=== PATIENT | male | born 1935 | race Caucasian/White ===

== ENCOUNTER 2017-07-26 05:55 | Inpatient (IN) ==
[2017-07-26 07:09] LABS: Apearance,Urine CLOUDY (Clear); Bilirubin,Urine Negative (Negative); Blood, Urine Large mg/dL (Negative); Glucose,Urine (UA) Negative (Negative); Ketones,Urine Negative (Negative); Nitrite,Urine Negative (Negative); Protein,Urine 100 MG/DL; RBC,Urine 2851 /HPF (0-4); Urine Color Red (Yellow); Urine Specific Gravity 1.005 (1.001-1.035); Urine Urobilinogen < 2.0 EU/DL (0.2-1.0)
[2017-07-26 08:07] LABS: Basophils # 0.1 10*3/uL (0.0-0.2); Basophils % 0.6 % (0.0-0.8); Eosinophils # 0.2 10*3/uL (0.0-0.87); Eosinophils % 1.7 % (0.00-10.9); Hematocrit 38.9 VOL% (42.0-52.0); Hemoglobin 13.2 GM/DL (14.0-18.0); Immature Granulocytes % 0.8 %; Immature Granulocytes Absolute 0.09 #; Lymphocytes # 1.9 10*3/uL (1.4-4.0); Lymphocytes % 16.4 % (21.2-54.2); Mean Corpuscular HGB Conc 33.9 GM/DL (32-36); Mean Corpuscular Hemoglobin 30 PG (27-34); Mean Corpuscular Volume 87.6 FL (87-102); Mean Platelet Volume 10.7 FL (9.6-12.0); Monocytes % 8.6 % (1.7-12.7); Neutrophils # 8.4 10*3/uL (1.4-7.4); Neutrophils % 71.9 % (38.7-73.9); Platelet Count 270 T/CUMM (130-400); Red Blood Count 4.44 MC/CUMM (3.8-5.5); Red Cell Distribution Width 13.2 % (9.3-17.3); White Blood Count 11.6 T/CUMM (4-12)
[2017-07-26 08:40] LABS: Calcium 9.1 MG/DL (8.5-10.1); Osmolality,Calculated 279.8 MOS/KG (273-304); Potassium 3.9 MMOL/L (3.5-5.1)
[2017-07-26] MEDS ORDERED: ONDANSETRON 4 MG/2 ML VIAL IV PRN (09:11)
[2017-07-26] MEDS ORDERED: ZALEPLON 5 MG CAPSULE PO PRN (09:11)
[2017-07-26] MEDS ORDERED: BISACODYL 5 MG TABLET PO PRN (09:11)
[2017-07-26] MEDS ORDERED: PROMETHAZINE 25 MG/1 ML VIAL IM PRN (09:11)
[2017-07-26] MEDS: SODIUM CHLORIDE 0.45% 1,000 ML IV SCH ×2 (10:43→21:56)
[2017-07-26] MEDS: POLYETHYLENE GLYCOL POWDER 17 GM PACK PO SCH (13:27)
[2017-07-26] MEDS: METOPROLOL SUCCINATE XL 50 MG TABLET PO SCH (21:57)
[2017-07-26] MEDS: metFORMIN 500 MG TABLET PO SCH (21:57)
[2017-07-27 07:03] LABS: Basophils # 0.1 10*3/uL (0.0-0.2); Basophils % 0.5 % (0.0-0.8); Eosinophils # 0.3 10*3/uL (0.0-0.87); Eosinophils % 2.5 % (0.00-10.9); Hematocrit 34.6 VOL% (42.0-52.0); Hemoglobin 11.7 GM/DL (14.0-18.0); Immature Granulocytes % 0.7 %; Lymphocytes # 2.2 10*3/uL (1.4-4.0); Lymphocytes % 15.8 % (21.2-54.2); Mean Corpuscular HGB Conc 33.8 GM/DL (32-36); Mean Corpuscular Hemoglobin 30 PG (27-34); Mean Corpuscular Volume 88.5 FL (87-102); Mean Platelet Volume 10.7 FL (9.6-12.0); Monocytes # 1.4 10*3/uL (0.11-0.8); Monocytes % 10.1 % (1.7-12.7); Neutrophils # 9.7 10*3/uL (1.4-7.4); Neutrophils % 70.4 % (38.7-73.9); Platelet Count 239 T/CUMM (130-400); Red Blood Count 3.91 MC/CUMM (3.8-5.5); Red Cell Distribution Width 13.2 % (9.3-17.3); White Blood Count 13.8 T/CUMM (4-12)
[2017-07-27] MEDS: metFORMIN 500 MG TABLET PO SCH ×2 (08:16→20:24)
[2017-07-27] MEDS: LISINOPRIL 10 MG TABLET PO SCH (08:16)
[2017-07-27] MEDS: ROSUVASTATIN 10 MG TABLET PO SCH (08:16)
[2017-07-27] MEDS: METOPROLOL SUCCINATE XL 50 MG TABLET PO SCH ×2 (08:16→20:25)
[2017-07-27] MEDS: OMEGA 3 ACID ETHYL ESTERS 1 GM CAPSULE PO SCH (08:16)
[2017-07-27] MEDS: POLYETHYLENE GLYCOL POWDER 17 GM PACK PO SCH (08:16)
[2017-07-27] MEDS: ACETAMINOPHEN 325 MG TABLET PO PRN (14:02)
[2017-07-27] MEDS: OXYBUTYNIN XL 10 MG TABLET PO SCH (16:50)
[2017-07-27] MEDS: SODIUM CHLORIDE 0.45% 1,000 ML IV SCH (20:25)
[2017-07-28] MEDS: ACETAMINOPHEN 325 MG TABLET PO PRN (00:55)
[2017-07-28] MEDS: metFORMIN 500 MG TABLET PO SCH (07:35)
[2017-07-28] MEDS ORDERED: NEOMYCIN/POLYMYXIN IRRIG SOLN 1 ML AMP BLADDERIRR ONE (10:03)
[2017-07-28] MEDS ORDERED: LEVOFLOXACIN INJ 100 ML IV ONE (10:45)
[2017-07-28] MEDS ORDERED: MEPERIDINE 50 MG/1 ML VIAL IM PRN (11:36)
[2017-07-28] MEDS ORDERED: PROPOFOL 200 MG/20 ML VIAL IV ONE (11:50)
[2017-07-28] MEDS ORDERED: GLYCOPYRROLATE 0.4 MG/2 ML VIAL ONE (11:51)
[2017-07-28] MEDS ORDERED: fentaNYL 100 MCG/2 ML VIAL ONE (11:51)
[2017-07-28] MEDS ORDERED: ePHEDrine 50 MG/ML AMP ONE (11:51)
[2017-07-28] MEDS ORDERED: ONDANSETRON 4 MG/2 ML VIAL ONE (11:51)
[2017-07-28] MEDS ORDERED: SEVOFLURANE 1 UNIT/15 MINUTE INH ONE (11:51)
[2017-07-28] MEDS ORDERED: METOPROLOL TARTRATE 5 MG/5 ML VIAL IV ONE (11:51)
[2017-07-28] MEDS ORDERED: ROCURONIUM 100 MG/10 ML VIAL IV ONE (11:52)
[2017-07-28] MEDS ORDERED: NEOSTIGMINE 10 MG/10 ML VIAL ONE (11:52)
[2017-07-28] MEDS: SODIUM CHLORIDE 0.45% 1,000 ML IV SCH (12:23)
[2017-07-28] MEDS: OXYBUTYNIN XL 10 MG TABLET PO SCH (14:02)
[2017-07-28] MEDS: ACETYLCYSTEINE 600 MG CAPSULE PO SCH ×2 (14:02→20:00)
[2017-07-28] MEDS: OMEGA 3 ACID ETHYL ESTERS 1 GM CAPSULE PO SCH (14:02)
[2017-07-28] MEDS: ROSUVASTATIN 10 MG TABLET PO SCH (14:02)
[2017-07-28] MEDS: METOPROLOL SUCCINATE XL 50 MG TABLET PO SCH ×2 (14:03→20:00)
[2017-07-28] MEDS: LISINOPRIL 10 MG TABLET PO SCH (14:03)
[2017-07-28] MEDS: POLYETHYLENE GLYCOL POWDER 17 GM PACK PO SCH (14:06)
[2017-07-28] MEDS ORDERED: ACETYLCYSTEINE 600 MG CAPSULE PO SCH (21:00)
[2017-07-29 07:22] LABS: Basophils # 0.1 10*3/uL (0.0-0.2); Basophils % 0.3 % (0.0-0.8); Eosinophils # 0.4 10*3/uL (0.0-0.87); Eosinophils % 2.9 % (0.00-10.9); Hematocrit 32.4 VOL% (42.0-52.0); Immature Granulocytes % 0.7 %; Mean Corpuscular Hemoglobin 30 PG (27-34); Mean Corpuscular Volume 87.3 FL (87-102); Mean Platelet Volume 10.2 FL (9.6-12.0); Monocytes # 1.5 10*3/uL (0.11-0.8); Monocytes % 10.2 % (1.7-12.7); Neutrophils # 10.4 10*3/uL (1.4-7.4); Neutrophils % 71.9 % (38.7-73.9); Platelet Count 266 T/CUMM (130-400); Red Blood Count 3.71 MC/CUMM (3.8-5.5); Red Cell Distribution Width 13.1 % (9.3-17.3); White Blood Count 14.5 T/CUMM (4-12)
[2017-07-29 07:49] LABS: Calcium 8.7 MG/DL (8.5-10.1); Osmolality,Calculated 268.2 MOS/KG (273-304); Potassium 4.2 MMOL/L (3.5-5.1)
[2017-07-29 08:22] VITALS: BP 132/77
[2017-07-29] MEDS ORDERED: FUROSEMIDE 80 MG TABLET PO SCH (09:00)
[2017-07-29] MEDS ORDERED: DUTASTERIDE 0.5 MG CAPSULE PO SCH (09:00)
== END 2017-07-29 08:50 | disposition home or self-care (01) | DRG 657 ==
LOC: N.ED 05:55 → N.EDINP 09:11 → N.5E 10:04
PROVIDERS: ADMIT Urology; ATTEND Urology

== ENCOUNTER 2017-08-10 11:21 | Inpatient (IN) ==
[2017-08-10] MEDS ORDERED: ALBUTEROL/IPRATROPIUM 3 ML NEB RESP TX STA ×2 (12:56)
[2017-08-10] MEDS ORDERED: FUROSEMIDE 40 MG/4 ML VIAL IV STA (12:57)
[2017-08-10] MEDS ORDERED: FUROSEMIDE 40 MG/4 ML VIAL ONE (13:27)
[2017-08-10 13:38] LABS: Basophils # 0.1 10*3/uL (0.0-0.2); Basophils % 0.4 % (0.0-0.8); Eosinophils # 0.3 10*3/uL (0.0-0.87); Eosinophils % 1.5 % (0.00-10.9); Hemoglobin 11.9 GM/DL (14.0-18.0); Immature Granulocytes % 0.7 %; Immature Granulocytes Absolute 0.12 #; Lymphocytes # 3.8 10*3/uL (1.4-4.0); Lymphocytes % 23.1 % (21.2-54.2); Mean Corpuscular Hemoglobin 30 PG (27-34); Mean Corpuscular Volume 87.1 FL (87-102); Mean Platelet Volume 9.8 FL (9.6-12.0); Monocytes # 1.3 10*3/uL (0.11-0.8); Monocytes % 7.7 % (1.7-12.7); Neutrophils # 10.9 10*3/uL (1.4-7.4); Neutrophils % 66.6 % (38.7-73.9); Platelet Count 308 T/CUMM (130-400); Red Blood Count 4.02 MC/CUMM (3.8-5.5); Red Cell Distribution Width 12.6 % (9.3-17.3); White Blood Count 16.3 T/CUMM (4-12)
[2017-08-10 13:45] LABS: Partial Thromboplastin Time 28.5 SECS (0-40)
[2017-08-10 13:45] LABS: Apearance,Urine CLEAR (Clear); Bacteria,Urine Occasional /HPF (Few); Bilirubin,Urine Negative (Negative); Blood, Urine Moderate mg/dL (Negative); Glucose,Urine (UA) Negative (Negative); Ketones,Urine Negative (Negative); Mucus,Urine Occasional /LPF (Occasional); Nitrite,Urine Negative (Negative); Protein,Urine Negative; RBC,Urine 4 /HPF (0-4); Squamous Epithelial Cell,Urine Occasional /HPF (0-10); Urine Color Straw (Yellow); Urine Specific Gravity 1.003 (1.001-1.035); Urine Urobilinogen < 2.0 EU/DL (0.2-1.0); WBC,Urine 46 /HPF (0-6)
[2017-08-10 13:47] LABS: Lactic Acid 1.8 MMOL/L (0.4-2.0)
[2017-08-10 13:48] LABS: Alanine Aminotransferase 14 U/L (16-61); Albumin 3.8 G/DL (3.4-5.0); Alkaline Phosphatase 94 U/L (45-117); Aspartate Amino Transferase 19 U/L (0-37); Bilirubin,Total < 0.39 MG/DL (0.2-1.0); Blood Urea Nitrogen 15 MG/DL (7-18); Calcium 8.8 MG/DL (8.5-10.1); Glucose 91 MG/DL (74-106); Osmolality,Calculated 268.2 MOS/KG (273-304); Sodium 134 MMOL/L (136-145); Troponin I Only < 0.015 NG/ML (0.00-0.045)
[2017-08-10] MEDS ORDERED: methylPREDNISolone SOD SUC 125 MG/2 ML VIAL IV STA (14:07)
[2017-08-10] MEDS ORDERED: LEVOFLOXACIN INJ 750 MG in PREMIX 1 EACH IV STA (14:07)
[2017-08-10] MEDS ORDERED: methylPREDNISolone SOD SUC 125 MG/2 ML VIAL ONE (14:27)
[2017-08-10] MEDS ORDERED: BISACODYL 5 MG TABLET PO PRN (15:23)
[2017-08-10] MEDS ORDERED: guaiFENesin/DM ER 600-30 MG TABLET PO PRN (15:23)
[2017-08-10] MEDS ORDERED: traZODone 50 MG TABLET PO PRN (15:23)
[2017-08-10] MEDS ORDERED: ONDANSETRON 4 MG/2 ML VIAL IV PRN (15:23)
[2017-08-10] MEDS ORDERED: DEXTROSE 50% 25 GM/50 ML VIAL IV PRN (15:23)
[2017-08-10] MEDS ORDERED: GLUCAGON 1 MG VIAL IM PRN (15:23)
[2017-08-10] MEDS ORDERED: ACETAMINOPHEN 325 MG TABLET PO PRN (15:26)
[2017-08-10] MEDS: METOPROLOL SUCCINATE XL 50 MG TABLET PO SCH (17:16)
[2017-08-10] MEDS: INSULIN REGULAR 100 UNIT/ML SUBCUT SCH ×2 (18:16→20:59)
[2017-08-10] MEDS: ALBUTEROL/IPRATROPIUM 3 ML NEB RESP TX SCH (20:03)
[2017-08-10] MEDS: ENOXAPARIN 40 MG/0.4 ML SYRINGE SUBCUT SCH (20:59)
[2017-08-11] MEDS: ALBUTEROL/IPRATROPIUM 3 ML NEB RESP TX SCH ×6 (00:23→20:12)
[2017-08-11 04:27] LABS: Basophils % 0.2 % (0.0-0.8); Hematocrit 33.6 VOL% (42.0-52.0); Hemoglobin 11.2 GM/DL (14.0-18.0); Immature Granulocytes % 0.7 %; Immature Granulocytes Absolute 0.07 #; Lymphocytes # 1.5 10*3/uL (1.4-4.0); Lymphocytes % 15.2 % (21.2-54.2); Mean Corpuscular HGB Conc 33.3 GM/DL (32-36); Mean Corpuscular Hemoglobin 29 PG (27-34); Mean Corpuscular Volume 86.8 FL (87-102); Monocytes # 0.3 10*3/uL (0.11-0.8); Monocytes % 2.5 % (1.7-12.7); Neutrophils # 8.1 10*3/uL (1.4-7.4); Neutrophils % 81.4 % (38.7-73.9); Platelet Count 303 T/CUMM (130-400); Red Blood Count 3.87 MC/CUMM (3.8-5.5); Red Cell Distribution Width 12.4 % (9.3-17.3); White Blood Count 9.9 T/CUMM (4-12)
[2017-08-11 04:52] LABS: Calcium 9.2 MG/DL (8.5-10.1); Osmolality,Calculated 269.5 MOS/KG (273-304); Potassium 4.3 MMOL/L (3.5-5.1)
[2017-08-11] MEDS: INSULIN REGULAR 100 UNIT/ML SUBCUT SCH ×4 (09:51→20:41)
[2017-08-11] MEDS: METOPROLOL SUCCINATE XL 50 MG TABLET PO SCH ×2 (09:52→16:25)
[2017-08-11] MEDS: ROSUVASTATIN 10 MG TABLET PO SCH (09:52)
[2017-08-11] MEDS: OXYBUTYNIN XL 10 MG TABLET PO SCH (09:52)
[2017-08-11] MEDS: LISINOPRIL 10 MG TABLET PO SCH (09:53)
[2017-08-11] MEDS: POLYETHYLENE GLYCOL POWDER 17 GM PACK PO SCH (09:58)
[2017-08-11] MEDS ORDERED: LEVOFLOXACIN INJ 750 MG in PREMIX 1 EACH IV SCH (14:00)
[2017-08-11] MEDS: ENOXAPARIN 40 MG/0.4 ML SYRINGE SUBCUT SCH (20:42)
[2017-08-12] MEDS: ALBUTEROL/IPRATROPIUM 3 ML NEB RESP TX SCH ×4 (01:10→11:22)
[2017-08-12] MEDS: INSULIN REGULAR 100 UNIT/ML SUBCUT SCH ×2 (08:19→12:30)
[2017-08-12] MEDS: POLYETHYLENE GLYCOL POWDER 17 GM PACK PO SCH (08:58)
[2017-08-12] MEDS: ROSUVASTATIN 10 MG TABLET PO SCH (09:11)
[2017-08-12] MEDS: METOPROLOL SUCCINATE XL 50 MG TABLET PO SCH (09:11)
[2017-08-12] MEDS: OXYBUTYNIN XL 10 MG TABLET PO SCH (09:11)
[2017-08-12] MEDS: LISINOPRIL 10 MG TABLET PO SCH (09:11)
[2017-08-12 11:53] VITALS: BP 134/64
== END 2017-08-12 15:02 | disposition home or self-care (01) | DRG 190 ==
LOC: N.ED 11:21 → SUATTDRO 14:37 → N.EDINP 14:37 → N.TELES 16:16
PROVIDERS: ADMIT Internal Medicine Cardiovascular Disease; ATTEND Internal Medicine

== ENCOUNTER 2017-09-24 05:27 | Inpatient (IN) ==
[2017-09-22 15:31] LABS: Basophils # 0.1 10*3/uL (0.0-0.2); Basophils % 0.8 % (0.0-0.8); Eosinophils # 0.3 10*3/uL (0.0-0.87); Eosinophils % 2.2 % (0.00-10.9); Hematocrit 34.3 VOL% (42.0-52.0); Hemoglobin 11.5 GM/DL (14.0-18.0); Immature Granulocytes % 0.6 %; Immature Granulocytes Absolute 0.07 #; Lymphocytes # 3.5 10*3/uL (1.4-4.0); Lymphocytes % 29.8 % (21.2-54.2); Mean Corpuscular HGB Conc 33.5 GM/DL (32-36); Mean Corpuscular Hemoglobin 29 PG (27-34); Mean Corpuscular Volume 86.2 FL (87-102); Mean Platelet Volume 9.7 FL (9.6-12.0); Monocytes # 1.1 10*3/uL (0.11-0.8); Monocytes % 9.7 % (1.7-12.7); Neutrophils # 6.6 10*3/uL (1.4-7.4); Neutrophils % 56.9 % (38.7-73.9); Platelet Count 211 T/CUMM (130-400); Red Blood Count 3.98 MC/CUMM (3.8-5.5); Red Cell Distribution Width 13.7 % (9.3-17.3); White Blood Count 11.6 T/CUMM (4-12)
[2017-09-22 15:40] LABS: Apearance,Urine CLEAR (Clear); Bacteria,Urine Occasional /HPF (Few); Bilirubin,Urine Negative (Negative); Blood, Urine Negative (Negative); Glucose,Urine (UA) Negative (Negative); Ketones,Urine Negative (Negative); Mucus,Urine Occasional /LPF (Occasional); Nitrite,Urine Negative (Negative); Protein,Urine 30 MG/DL; RBC,Urine 1 /HPF (0-4); Squamous Epithelial Cell,Urine Occasional /HPF (0-10); Urine Color Yellow (Yellow); Urine Specific Gravity 1.012 (1.001-1.035); Urine Urobilinogen < 2.0 EU/DL (0.2-1.0); WBC,Urine 5 /HPF (0-6)
[2017-09-22 16:07] LABS: Osmolality,Calculated 267.5 MOS/KG (273-304); Potassium 4.5 MMOL/L (3.5-5.1)
[~2017-09-24 05:27] MED LIST: ALVIMOPAN 12 MG CAPSULE PO SCH; LEVOFLOXACIN INJ 500 MG in PREMIX 1 EACH IV ONE
[2017-09-24] MEDS ORDERED: ALVIMOPAN 12 MG CAPSULE PO SCH (06:00)
[2017-09-24] MEDS: LACTATED RINGERS 1,000 ML IV SCH (06:35)
[2017-09-24] MEDS ORDERED: ALVIMOPAN 12 MG CAPSULE ONE (06:42)
[2017-09-24] MEDS ORDERED: cefTRIAXone 1,000 MG VIAL ONE (06:42)
[2017-09-24 07:03] LABS: Potassium 4.5 MMOL/L (3.5-5.1)
[2017-09-24] MEDS ORDERED: SUGAMMADEX 200 MG/2 ML VIAL IV ONE (09:59)
[2017-09-24] MEDS ORDERED: diphenhydrAMINE 50 MG/1 ML VIAL IV PRN (10:06)
[2017-09-24] MEDS ORDERED: NALOXONE 0.4 MG/ML VIAL IV PRN (10:10)
[2017-09-24] MEDS ORDERED: MORPHINE PCA 30 MG/30 ML SYRINGE IV SCH (10:30)
[2017-09-24] MEDS ORDERED: PROPOFOL 200 MG/20 ML VIAL IV ONE (10:33)
[2017-09-24] MEDS ORDERED: SEVOFLURANE 1 UNIT/15 MINUTE INH ONE (10:34)
[2017-09-24] MEDS ORDERED: ETOMIDATE 40 MG/20 ML VIAL IV ONE (10:34)
[2017-09-24] MEDS ORDERED: ONDANSETRON 4 MG/2 ML VIAL ONE ×2 (10:34→10:38)
[2017-09-24] MEDS ORDERED: fentaNYL 100 MCG/2 ML VIAL ONE (10:34)
[2017-09-24] MEDS ORDERED: ROCURONIUM 100 MG/10 ML VIAL IV ONE (10:34)
[2017-09-24] MEDS ORDERED: PHENYLEPHRINE 10 MG/1 ML VIAL IV ONE (10:34)
[2017-09-24] MEDS ORDERED: ACETAMINOPHEN 1,000 MG/100 ML VIAL IV ONE (10:34)
[2017-09-24] MEDS ORDERED: GLYCOPYRROLATE 0.4 MG/2 ML VIAL ONE (10:34)
[2017-09-24] MEDS ORDERED: PHENYLEPHRINE 1 MG/10 ML SYRINGE IV ONE (10:34)
[2017-09-24] MEDS ORDERED: LIDOCAINE 1% 5 ML VIAL ONE (10:34)
[2017-09-24] MEDS ORDERED: LACTATED RINGERS 1,000 ML IV ONE (10:35)
[2017-09-24] MEDS ORDERED: MORPHINE 10 MG/1 ML VIAL ONE (10:37)
[2017-09-24] MEDS ORDERED: ONDANSETRON 4 MG/2 ML VIAL IV PRN (10:40)
[2017-09-24] MEDS: MORPHINE 10 MG/1 ML VIAL IV PRN ×5 (10:40→11:04)
[2017-09-24] MEDS ORDERED: MEPERIDINE 25 MG/1 ML VIAL ONE (11:12)
[2017-09-24] MEDS: MEPERIDINE 25 MG/1 ML VIAL IV PRN (11:13)
[2017-09-24] MEDS: MORPHINE 4 MG/1 ML VIAL IV PRN ×2 (17:51→21:09)
[2017-09-24] MEDS: ONDANSETRON 4 MG/2 ML VIAL IV PRN (17:54)
[2017-09-24] MEDS: SODIUM CHLORIDE 0.9% 1,000 ML IV SCH (17:55)
[2017-09-24] MEDS: cefTRIAXone 1,000 MG in SYRINGE 1 EACH IV ONE (20:50)
[2017-09-24] MEDS: OXYBUTYNIN XL 10 MG TABLET PO SCH (21:09)
[2017-09-24] MEDS: ALVIMOPAN 12 MG CAPSULE PO SCH (21:09)
[2017-09-25] MEDS: MEPERIDINE 25 MG/1 ML VIAL IV PRN (00:58)
[2017-09-25] MEDS: SODIUM CHLORIDE 0.9% 1,000 ML IV SCH ×2 (01:16→19:09)
[2017-09-25] MEDS: ONDANSETRON 4 MG/2 ML VIAL IV PRN (05:48)
[2017-09-25 07:05] LABS: Basophils % 0.2 % (0.0-0.8); Hemoglobin 10.1 GM/DL (14.0-18.0); Immature Granulocytes % 0.6 %; Immature Granulocytes Absolute 0.11 #; Lymphocytes # 1.1 10*3/uL (1.4-4.0); Lymphocytes % 6.1 % (21.2-54.2); Mean Corpuscular HGB Conc 32.6 GM/DL (32-36); Mean Corpuscular Hemoglobin 28 PG (27-34); Mean Corpuscular Volume 87.1 FL (87-102); Mean Platelet Volume 10.7 FL (9.6-12.0); Monocytes # 1.6 10*3/uL (0.11-0.8); Monocytes % 8.9 % (1.7-12.7); Neutrophils # 14.6 10*3/uL (1.4-7.4); Neutrophils % 84.2 % (38.7-73.9); Platelet Count 224 T/CUMM (130-400); Red Blood Count 3.56 MC/CUMM (3.8-5.5); White Blood Count 17.4 T/CUMM (4-12)
[2017-09-25 07:30] LABS: Hypochromasia 1+; Ovalocytes Slight; Platelet Estimate Adequate
[2017-09-25 07:32] LABS: Calcium 8.8 MG/DL (8.5-10.1); Osmolality,Calculated 275.4 MOS/KG (273-304); Potassium 5.3 MMOL/L (3.5-5.1)
[2017-09-25] MEDS ORDERED: ACETAMINOPHEN 325 MG TABLET PO PRN (08:45)
[2017-09-25] MEDS ORDERED: oxyCODONE/ACETAMINOPHEN 5-325 MG TABLET PO PRN ×2 (08:46→09:03)
[2017-09-25] MEDS: POLYETHYLENE GLYCOL POWDER 17 GM PACK PO PRN (09:21)
[2017-09-25] MEDS: OMEGA 3 ACID ETHYL ESTERS 1 GM CAPSULE PO SCH (09:22)
[2017-09-25] MEDS: ROSUVASTATIN 10 MG TABLET PO SCH (09:22)
[2017-09-25] MEDS: OXYBUTYNIN XL 10 MG TABLET PO SCH (09:22)
[2017-09-25] MEDS: ALVIMOPAN 12 MG CAPSULE PO SCH ×2 (09:22→21:43)
[2017-09-25] MEDS: TAMSULOSIN 0.4 MG CAPSULE PO SCH (09:22)
[2017-09-25] MEDS: metFORMIN 500 MG TABLET PO SCH ×2 (09:22→09:24)
[2017-09-25] MEDS: METOPROLOL TARTRATE 50 MG TABLET PO SCH ×2 (09:23→21:43)
[2017-09-25] MEDS ORDERED: ALBUTEROL/IPRATROPIUM 3 ML NEB RESP TX PRN (11:00)
[2017-09-25] MEDS: INSULIN REGULAR 100 UNIT/ML SUBCUT SCH ×3 (12:54→21:43)
[2017-09-25] MEDS: LACTATED RINGERS 1,000 ML IV SCH (20:36)
[2017-09-26] MEDS: SODIUM CHLORIDE 0.9% 1,000 ML IV SCH (05:44)
[2017-09-26 07:23] LABS: Calcium 8.5 MG/DL (8.5-10.1); Osmolality,Calculated 262.8 MOS/KG (273-304); Potassium 4.3 MMOL/L (3.5-5.1)
[2017-09-26] MEDS: ROSUVASTATIN 10 MG TABLET PO SCH (09:29)
[2017-09-26] MEDS: INSULIN REGULAR 100 UNIT/ML SUBCUT SCH ×4 (09:29→21:23)
[2017-09-26] MEDS: OMEGA 3 ACID ETHYL ESTERS 1 GM CAPSULE PO SCH (09:29)
[2017-09-26] MEDS: OXYBUTYNIN XL 10 MG TABLET PO SCH (09:29)
[2017-09-26] MEDS: METOPROLOL TARTRATE 50 MG TABLET PO SCH ×2 (09:30→21:22)
[2017-09-26] MEDS: cefTRIAXone 1,000 MG in SYRINGE 1 EACH IV ONE (09:48)
[2017-09-26] MEDS: TAMSULOSIN 0.4 MG CAPSULE PO SCH (09:53)
[2017-09-27] MEDS: INSULIN REGULAR 100 UNIT/ML SUBCUT SCH ×2 (07:37→13:00)
[2017-09-27] MEDS: METOPROLOL TARTRATE 50 MG TABLET PO SCH (08:36)
[2017-09-27] MEDS: OMEGA 3 ACID ETHYL ESTERS 1 GM CAPSULE PO SCH (08:36)
[2017-09-27] MEDS: TAMSULOSIN 0.4 MG CAPSULE PO SCH (08:36)
[2017-09-27] MEDS: ROSUVASTATIN 10 MG TABLET PO SCH (08:37)
[2017-09-27] MEDS: OXYBUTYNIN XL 10 MG TABLET PO SCH (08:37)
[2017-09-27] MEDS: POLYETHYLENE GLYCOL POWDER 17 GM PACK PO PRN (08:47)
[2017-09-27 10:06] LABS: Calcium 8.9 MG/DL (8.5-10.1); Osmolality,Calculated 264.7 MOS/KG (273-304)
[2017-09-27 10:59] VITALS: BP 141/79
== END 2017-09-27 13:48 | disposition home health service (06) | DRG 657 ==
LOC: N.OR 05:27 → N.SDSINP 05:29 → N.5E 10:06
PROVIDERS: ADMIT Urology; ATTEND Urology

== ENCOUNTER 2019-07-09 13:19 | Inpatient (IN) ==
[2019-07-09] MEDS ORDERED: SODIUM CHLORIDE 0.9% 1,000 ML IV STA ×2 (18:48→19:51)
[2019-07-09 19:20] LABS: Basophils # 0.1 10*3/uL (0.0-0.2); Basophils % 0.4 % (0.0-0.8); Eosinophils % 0.2 % (0.00-10.9); Hematocrit 37.6 VOL% (42.0-52.0); Hemoglobin 12.3 GM/DL (14.0-18.0); Immature Granulocytes % 1.2 %; Immature Granulocytes Absolute 0.29 #; Lymphocytes # 2.2 10*3/uL (1.4-4.0); Mean Corpuscular HGB Conc 32.7 GM/DL (32-36); Mean Corpuscular Volume 85.5 FL (87-102); Mean Platelet Volume 9.6 FL (9.6-12.0); Monocytes % 8.1 % (1.7-12.7); Neutrophils % 81.1 % (38.7-73.9); Platelet Count 391 T/CUMM (130-400); Red Cell Distribution Width 14.6 % (9.3-17.3); White Blood Count 24.2 T/CUMM (4-12)
[2019-07-09 19:35] LABS: Alanine Aminotransferase 29 U/L (16-61); Alkaline Phosphatase 234 U/L (45-117); Aspartate Amino Transferase 49 U/L (0-37); Blood Urea Nitrogen 30 MG/DL (7-18); Calcium 9.8 MG/DL (8.5-10.1); Estimated Glom Filtration Rate 38 ML/MIN; Glucose 116 MG/DL (74-106); Osmolality,Calculated 259.4 MOS/KG (273-304)
[2019-07-09] MEDS ORDERED: PIPERACILLIN/TAZOBACTAM 3,375 MG in SODIUM CHLORIDE 0.9% 100 ML IV STA (19:51)
[2019-07-09 20:03] LABS: Lymphocytes 8 % (20-55); Platelet Estimate Normal; Polychromasia Slight; Reactive Lymphocytes Slight; Segmented Neutrophils 86 % (50-85); Total Cells Counted 100
[2019-07-09 20:53] LABS: Apearance,Urine CLEAR (Clear); Bacteria,Urine Occasional /HPF (Few); Bilirubin,Urine Negative (Negative); Blood, Urine Negative (Negative); Glucose,Urine (UA) Negative (Negative); Hyaline Casts,Urine 8 /LPF (0-3); Ketones,Urine Negative (Negative); Mucus,Urine Occasional /LPF (Occasional); Nitrite,Urine Negative (Negative); Protein,Urine Negative; Squamous Epithelial Cell,Urine Occasional /HPF (0-10); Urine Color Yellow (Yellow); Urine Specific Gravity 1.019 (1.001-1.035); Urine Urobilinogen < 2.0 EU/DL (0.2-1.0)
[2019-07-09] MEDS ORDERED: guaiFENesin/DM ER 600-30 MG TABLET PO PRN (21:38)
[2019-07-09] MEDS ORDERED: ZALEPLON 5 MG CAPSULE PO PRN (21:38)
[2019-07-09] MEDS ORDERED: hydrALAZINE 20 MG/1 ML VIAL IV PRN (21:38)
[2019-07-09] MEDS ORDERED: ALBUTEROL 2.5 MG/3 ML NEB RESP TX PRN (21:38)
[2019-07-09] MEDS ORDERED: PROMETHAZINE 25 MG/1 ML VIAL IM PRN (21:38)
[2019-07-09] MEDS ORDERED: DOCUSATE SODIUM 100 MG CAPSULE PO PRN (21:38)
[2019-07-09] MEDS ORDERED: diphenhydrAMINE CAP 25 MG CAPSULE PO PRN (21:38)
[2019-07-09] MEDS ORDERED: NICOTINE 21 MG/24 HR PATCH TRANSDERM PRN (21:38)
[2019-07-09] MEDS ORDERED: DEXTROSE 50% 25 GM/50 ML VIAL IV PRN (21:38)
[2019-07-09] MEDS ORDERED: MORPHINE 4 MG/1 ML VIAL IV PRN (21:38)
[2019-07-09] MEDS ORDERED: GLUCAGON 1 MG VIAL IM PRN (21:38)
[2019-07-09] MEDS ORDERED: ACETAMINOPHEN 325 MG TABLET PO PRN (21:38)
[2019-07-09] MEDS ORDERED: ONDANSETRON 4 MG/2 ML VIAL IV PRN (21:38)
[2019-07-09] MEDS ORDERED: SODIUM CHLORIDE 0.9% 500 ML IV ONE (21:46)
[2019-07-09] MEDS ORDERED: VANCOMYCIN INJ 1,250 MG in SODIUM CHLORIDE 0.9% 250 ML IV PRN (23:21)
[2019-07-09] MEDS: SODIUM CHLORIDE 0.9% 1,000 ML IV SCH (23:55)
[2019-07-09] MEDS: metroNIDAZOLE INJ 500 MG in PREMIX 1 EACH IV SCH (23:58)
[2019-07-10] MEDS ORDERED: VANCOMYCIN INJ 2,000 MG in SODIUM CHLORIDE 0.9% 500 ML IV ONE
[2019-07-10] MEDS: ALBUTEROL/IPRATROPIUM 3 ML NEB RESP TX SCH ×4 (01:05→19:24)
[2019-07-10] MEDS ORDERED: AZITHROMYCIN INJ 500 MG in SODIUM CHLORIDE 0.9% 250 ML IV SCH (02:00)
[2019-07-10 06:28] LABS: Basophils # 0.1 10*3/uL (0.0-0.2); Basophils % 0.3 % (0.0-0.8); Eosinophils # 0.2 10*3/uL (0.0-0.87); Eosinophils % 1.4 % (0.00-10.9); Hematocrit 30.2 VOL% (42.0-52.0); Hemoglobin 9.9 GM/DL (14.0-18.0); Immature Granulocytes % 0.8 %; Immature Granulocytes Absolute 0.12 #; Lymphocytes # 1.4 10*3/uL (1.4-4.0); Lymphocytes % 8.9 % (21.2-54.2); Mean Corpuscular HGB Conc 32.8 GM/DL (32-36); Mean Corpuscular Volume 83.9 FL (87-102); Mean Platelet Volume 9.6 FL (9.6-12.0); Monocytes % 11.3 % (1.7-12.7); Neutrophils % 77.3 % (38.7-73.9); Platelet Count 277 T/CUMM (130-400); Red Cell Distribution Width 14.3 % (9.3-17.3); White Blood Count 15.4 T/CUMM (4-12)
[2019-07-10 07:08] LABS: Albumin 2.3 G/DL (3.4-5.0); Bilirubin,Total 0.5 MG/DL (0.2-1.0); Calcium 8.6 MG/DL (8.5-10.1); Osmolality,Calculated 262.9 MOS/KG (273-304); Total Protein 6.2 G/DL (6.4-8.3)
[2019-07-10] MEDS ORDERED: cefTRIAXone 2,000 MG in SYRINGE 1 EACH IV SCH (08:00)
[2019-07-10] MEDS: PANTOPRAZOLE 40 MG TABLET PO SCH (09:51)
[2019-07-10] MEDS: metroNIDAZOLE INJ 500 MG in PREMIX 1 EACH IV SCH ×3 (09:51→23:45)
[2019-07-10 10:35] LABS: % Iron Saturation 14.9 % (18-50); Ferritin 927.9 ng/ml (26-388)
[2019-07-10] MEDS ORDERED: MAGNESIUM SULF RIDER 2 GM in PREMIX 1 EACH IV PRN (11:19)
[2019-07-10] MEDS ORDERED: MAGNESIUM SULF RIDER 4 GM in PREMIX 1 EACH IV PRN (11:19)
[2019-07-10 12:09] LABS: Folate 12.6 NG/ML (5.4-24.0)
[2019-07-10] MEDS: SODIUM CHLORIDE 0.9% 1,000 ML IV SCH ×2 (12:35→14:26)
[2019-07-10] MEDS: METOPROLOL TARTRATE 25 MG TABLET PO SCH ×2 (16:05→21:33)
[2019-07-10] MEDS ORDERED: TAMSULOSIN 0.4 MG CAPSULE PO SCH (21:00)
[2019-07-11] MEDS ORDERED: VANCOMYCIN INJ 1,250 MG in SODIUM CHLORIDE 0.9% 250 ML IV SCH
[2019-07-11] MEDS: ALBUTEROL/IPRATROPIUM 3 ML NEB RESP TX SCH ×3 (00:29→12:44)
[2019-07-11] MEDS: SODIUM CHLORIDE 0.9% 1,000 ML IV SCH (04:09)
[2019-07-11 06:20] LABS: Basophils # 0.1 10*3/uL (0.0-0.2); Basophils % 0.3 % (0.0-0.8); Eosinophils # 0.1 10*3/uL (0.0-0.87); Eosinophils % 0.6 % (0.00-10.9); Hematocrit 29.6 VOL% (42.0-52.0); Hemoglobin 9.6 GM/DL (14.0-18.0); Immature Granulocytes % 1.4 %; Immature Granulocytes Absolute 0.22 #; Lymphocytes # 1.5 10*3/uL (1.4-4.0); Lymphocytes % 9.3 % (21.2-54.2); Mean Corpuscular HGB Conc 32.4 GM/DL (32-36); Mean Corpuscular Volume 85.1 FL (87-102); Mean Platelet Volume 9.6 FL (9.6-12.0); Monocytes % 14.4 % (1.7-12.7); Platelet Count 269 T/CUMM (130-400); Red Blood Count 3.48 MC/CUMM (3.8-5.5); Red Cell Distribution Width 14.6 % (9.3-17.3); White Blood Count 15.7 T/CUMM (4-12)
[2019-07-11 06:34] LABS: Calcium 8.3 MG/DL (8.5-10.1); Osmolality,Calculated 264.7 MOS/KG (273-304)
[2019-07-11] MEDS: metroNIDAZOLE INJ 500 MG in PREMIX 1 EACH IV SCH (08:55)
[2019-07-11] MEDS: METOPROLOL TARTRATE 25 MG TABLET PO SCH (08:56)
[2019-07-11] MEDS: PANTOPRAZOLE 40 MG TABLET PO SCH (08:56)
[2019-07-11 12:08] VITALS: BP 122/52
[2019-07-12] MEDS ORDERED: FERROUS SULFATE 325 MG TABLET PO SCH (09:00)
== END 2019-07-11 14:20 | disposition hospice, home (50) | DRG 543 ==
LOC: N.ED 13:19 → N.EDINP 21:38 → N.2E 22:06
PROVIDERS: ADMIT Internal Medicine; ATTEND Internal Medicine